=== PATIENT | female | born 1935 | race Caucasian/White ===

== ENCOUNTER → 2016-08-21 | Outpatient (CLI) | payer OTHER ==
[2016-08-21 09:35] LABS: BILIRUBIN,TOTAL 1.1 mg/dL (0.3-1.2); BUN/CREATININE RATIO 27.14 (6-20); CALCIUM 9.7 mg/dL (8.7-10.7); CREATININE 0.7 mg/dL (0.50-1.20); POTASSIUM 3.8 meq/L (3.8-5.2); TOTAL PROTEIN 7.6 g/dL (6.1-8.0)
[2016-08-21 09:38] LABS: CREATININE, URINE 29.9 MG/DL (15-500)
[2016-08-21 09:38] LABS: HEMOGLOBIN A1C 6.78 % (4.2-6.0); MEAN BLOOD GLUCOSE (CALC) 139.774 mg/dL
== END ==
LOC: LAB 09:09
PROVIDERS: ATTEND Internal Medicine
DX: E11.9 Type 2 diabetes mellitus without complications (principal); Z79.4 Long term (current) use of insulin; I10 Essential (primary) hypertension; E78.5 Hyperlipidemia, unspecified
CPT/HCPCS: 36415; 80053; 80061; 82043; 83036

== ENCOUNTER → 2016-08-22 | Outpatient (CLI) | payer OTHER | LOC: MMPC 11:11 | PROVIDERS: ATTEND Internal Medicine | DX: M54.5 Low back pain (principal); Z02.89 Encounter for other administrative examinations; E11.9 Type 2 diabetes mellitus without complications; E78.5 Hyperlipidemia, unspecified; I10 Essential (primary) hypertension; E66.9 Obesity, unspecified | CPT/HCPCS: 99214; G0463 ==

== ENCOUNTER → 2017-01-07 | Outpatient (CLI) | payer OTHER | LOC: MOB LAB 11:23 | PROVIDERS: ATTEND Physician Assistant | DX: Z20.818 Contact with and (suspected) exposure to other bacterial communicable diseases (principal) | CPT/HCPCS: 87070; 87077; 87186; 87205 ==

== ENCOUNTER → 2017-01-17 | Outpatient (CLI) | payer OTHER | LOC: MMPC 11:11 | PROVIDERS: ATTEND Nurse Practitioner | DX: B95.62 Methicillin resistant Staphylococcus aureus infection as the cause of diseases classified elsewhere (principal); L30.4 Erythema intertrigo | CPT/HCPCS: 99213; G0463 ==